=== PATIENT | male | born 1980 | race Caucasian/White ===

== ENCOUNTER 2024-03-25 21:54 | Inpatient (IN) ==
--- NOTE | 2024-03-25 22:18 | Emergency Department Note ---
Impression & Plan Hypertensive crisis, Hypertension, Elevated troponin ED Provider Note NAME: ANGELICA MANSFIELD AGE: 43 SEX: M : 1980 ARRIVES VIA: Walk-In INFORMANT: Patient ED PROVIDER(S): Luis Domniguez DO CHIEF COMPLAINT: Cough, nasal congestion, and elevated blood pressure HPI: Patient is a 43-year-old male who presents to the ER for cough that has been present for the past several days. In combination with this he admits to nasal congestion. Patient admits to an episode of hematuria earlier today where he passed a large clot in his urine. He has not urinated since then. No flank pain. No trauma. No dysuria, urgency, or frequency. Denies any headache or change in vision. No chest pain or shortness of breath. No weakness or numbness in the arms or legs. No other exacerbating or remitting factors. 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 ADDITIONAL HISTORY OBTAINED: Per HPI Chronic Medical/Social Conditions Affecting Care: Per HPI PAST MEDICAL HISTORY:See Below PAST SURGICAL HISTORY:See Below FAMILY HISTORY:See Below SOCIAL HISTORY:See Below HOME MEDICATIONS:See Below ALLERGIES:See Below VITALS:See Below PHYSICAL EXAMINATION: GENERAL: Sitting up in bed, alert, well appearing, well nourished, no distress, non-toxic EYE EXAM: normal conjunctiva. PERRL and EOM's grossly intact. OROPHARYNX: no exudate, no erythema, lips, buccal mucosa, and tongue normal and mucous membranes are moist NECK: supple, no nuchal rigidity, no adenopathy, non-tender LUNGS: Clear to auscultation. Normal chest wall mechanics HEART: no murmurs, S1 normal and S2 normal ABDOMEN: abdomen soft, non-tender, normo-active bowel sounds, no masses, no rebound or guarding. BACK: Back is symmetrical on inspection and there is no deformity, no midline tenderness, no CVA tenderness. SKIN: no rashes and no bruising UPPER EXTREMITIES: upper extremities are grossly normal. LOWER EXTREMITIES: No pitting edema. NEURO EXAM: Normal sensorium, cranial nerves II-XII intact, normal speech, no weakness of arms, no weakness of legs. No drift. Finger to nose intact. Gross sensation intact. MEDICAL DECISION MAKING: Patient is a 43-year-old male who presents to the ER for the above-stated complaint. IV was established and blood work was obtained. External records were reviewed and he was seen and evaluated at the urgent care and had systolic pressures in the 220s. Labs show no significant leukocytosis or anemia. Platelets are slightly low at 128. BMP along LFTs bilirubin is unremarkable. Troponin was mildly elevated at 98. Viral panel was positive for rhinovirus. Chest x-ray was clean. CT abdomen pelvis was performed due to the hematuria and passing clots and showed no acute pathology. Patient was given 2 doses of labetalol IV due to systolic pressures of 2 30-2 50. They trended down to 180. Will hold at this point as this is close to 25% decrease. With the elevated troponin, EKG consistent with LVH and pulmonary edema did discuss with the hospitalist for further evaluation. Consults/Care Managements Discussions: Per [facility] Triage Nursing notes reviewed. Limited review of prior medical records performed Vital Signs: reviewed and remarkable for HTN Differential diagnosis: Benign hypertension, hypertensive emergency, cardiovascular pathology, toxicologic, pheochromocytoma, electrolyte abnormality, renal disease, endorgan damage, as well as other pathologies. ER treatment provided: See below Diagnostics interpreted by me include EKG and cardiac monitoring as listed below: -Cardiac Monitoring: An order was placed for continuous cardiac monitoring. The monitor shows a rate of 80 with sinus rhythm. -ECG: Sinus rhythm rate 84 Normal axis No PVCs T wave inversion in the lateral leads as well as the high lateral leads, LVH -Laboratory studies:Interpreted by me as stated above in MDM and shown below. Imaging studies: Xrays: As interpreted by me: Portable AP upright 1 view of the chest shows no focal infiltrate CTs show: CT abdomen pelvis showed cardiomegaly with interstitial edema Procedures:none Critical Care: I have personally spent 35 minutes of critical care time in the direct management of this patient. This includes bedside care, interpretation of diagnostic studies, and testing, discussion with consultants, patient, and family members, and other required patient management activities. This 35 minutes is in excess of all separately billable procedures. Past Med/Surg History Problem List (Updated 03/26/24 @ 00:32 by Luis Dominguez DO) Elevated troponin (Acute) Hypertension (Acute) Hypertensive crisis (Acute) Medical History (Updated 03/26/24 @ 00:32 by Luis Dominguez DO) No pertinent past medical history Social History Smoking Status: Never smoker Feels Safe at Home: Yes Allergies Allergies Allergy/AdvReac Type Severity Reaction Status Date / Time Sulfa (Sulfonamide Allergy Unknown RASH Verified 03/23/24 11:51 Antibiotics) Home Meds Home Medications Medication Instructions Recorded Confirmed Augmentin 0 tab PO UD 03/25/24 03/25/24 Results & Data (ED) Vital Signs Vital Signs - 24 hr 03/25/24 21:58 03/25/24 22:09 03/25/24 22:10 Temperature 36.9 C Temperature Source Temporal Artery Scan Pulse Rate 88 84 Pulse Rate [Apical] 85 Respiratory Rate 20 28 H Respiratory Effort / Characteristics Non-Labored Non-Labored Respiratory Depth Normal Normal Blood Pressure Blood Pressure [Right Arm] 233/169 H Blood Pressure Mean [Right Arm] 190 Pulse Oximetry 96 97 Oxygen Delivery Method Room Air Room Air Sepsis Recent Fever Within 48 Hours No Sepsis New/Unexplained Change in Mental Status No Sepsis Action Taken by Nursing No Action Required 03/25/24 22:23 03/25/24 22:24 03/25/24 22:25 Temperature Temperature Source Pulse Rate Pulse Rate [Apical] 84 81 Respiratory Rate 16 16 Respiratory Effort / Characteristics Respiratory Depth Blood Pressure Blood Pressure [Right Arm] 223/172 H 236/165 H Blood Pressure Mean [Right Arm] 189 188 Pulse Oximetry 95 96 95 Oxygen Delivery Method Room Air Room Air Room Air Sepsis Recent Fever Within 48 Hours Sepsis New/Unexplained Change in Mental Status Sepsis Action Taken by Nursing 03/25/24 22:30 03/25/24 22:35 03/25/24 22:52 Temperature Temperature Source Pulse Rate Pulse Rate [Apical] 77 77 84 Respiratory Rate 16 16 16 Respiratory Effort / Characteristics Respiratory Depth Blood Pressure Blood Pressure [Right Arm] 221/159 H 221/155 H 250/169 H Blood Pressure Mean [Right Arm] 179 177 196 Pulse Oximetry 95 95 97 Oxygen Delivery Method Room Air Room Air Room Air Sepsis Recent Fever Within 48 Hours Sepsis New/Unexplained Change in Mental Status Sepsis Action Taken by Nursing 03/25/24 22:56 03/25/24 23:00 03/25/24 23:05 Temperature Temperature Source Pulse Rate 82 Pulse Rate [Apical] 73 78 Respiratory Rate 16 16 Respiratory Effort / Characteristics Respiratory Depth Blood Pressure 220/167 H Blood Pressure [Right Arm] 201/141 H 212/150 H Blood Pressure Mean [Right Arm] 161 170 Pulse Oximetry 94 93 Oxygen Delivery Method Room Air Room Air Sepsis Recent Fever Within 48 Hours Sepsis New/Unexplained Change in Mental Status Sepsis Action Taken by Nursing 03/25/24 23:10 03/25/24 23:12 03/25/24 23:16 Temperature Temperature Source Pulse Rate 73 71 Pulse Rate [Apical] 71 Respiratory Rate 16 Respiratory Effort / Characteristics Respiratory Depth Blood Pressure 212/150 H 214/163 H Blood Pressure [Right Arm] 192/136 H Blood Pressure Mean [Right Arm] 154 Pulse Oximetry 94 Oxygen Delivery Method Room Air Sepsis Recent Fever Within 48 Hours Sepsis New/Unexplained Change in Mental Status Sepsis Action Taken by Nursing 03/25/24 23:21 03/25/24 23:25 03/25/24 23:30 Temperature Temperature Source Pulse Rate Pulse Rate [Apical] 70 69 73 Respiratory Rate 16 16 16 Respiratory Effort / Characteristics Respiratory Depth Blood Pressure Blood Pressure [Right Arm] 197/121 H 194/121 H 196/124 H Blood Pressure Mean [Right Arm] 146 145 148 Pulse Oximetry 94 94 94 Oxygen Delivery Method Room Air Room Air Room Air Sepsis Recent Fever Within 48 Hours Sepsis New/Unexplained Change in Mental Status Sepsis Action Taken by Nursing 03/25/24 23:35 03/25/24 23:48 03/26/24 00:00 Temperature Temperature Source Pulse Rate 72 Pulse Rate [Apical] 67 68 Respiratory Rate 16 16 Respiratory Effort / Characteristics Respiratory Depth Blood Pressure 182/136 H Blood Pressure [Right Arm] 192/128 H 186/131 H Blood Pressure Mean [Right Arm] 149 149 Pulse Oximetry 94 94 Oxygen Delivery Method Room Air Room Air Sepsis Recent Fever Within 48 Hours Sepsis New/Unexplained Change in Mental Status Sepsis Action Taken by Nursing 03/26/24 00:10 Temperature Temperature Source Pulse Rate Pulse Rate [Apical] 68 Respiratory Rate 16 Respiratory Effort / Characteristics Respiratory Depth Blood Pressure Blood Pressure [Right Arm] 181/119 H Blood Pressure Mean [Right Arm] 139 Pulse Oximetry 92 Oxygen Delivery Method Room Air Sepsis Recent Fever Within 48 Hours Sepsis New/Unexplained Change in Mental Status Sepsis Action Taken by Nursing Laboratory Data 03/25/24 22:20 03/25/24 22:20 Lab Results 03/25/24 Range/Units 22:20 WBC 7.60 (4.8-10.8) K/ul RBC 5.07 (4.70-6.10) M/uL Hgb 15.2 (14.0-18.0) g/dl Hct 43.6 (42.0-52.0) % MCV 86.0 (80.0-100.0) fL MCH 30.0 (25.0-34.0) pg MCHC 34.9 (32.0-36.0) g/dL RDW Std Deviation 39.5 (36.4-46.3) fL RDW Coeff of Mya 12.6 (11.5-14.5) % Plt Count 128 L (130-400) K/uL MPV 11.6 (9.4-12.4) fL Immature Gran % (Auto) 0.3 % Neut % (Auto) 59.0 % Lymph % (Auto) 26.8 % [place] % (Auto) 12.0 % Eos % (Auto) 1.2 % Baso % (Auto) 0.7 % Neut # (Auto) 4.49 (1.40-6.50) K/uL Lymph # (Auto) 2.04 (1.20-3.40) K/uL [place] # (Auto) 0.91 H (0.11-0.59) K/uL Eos # (Auto) 0.09 (0.00-0.50) K/uL Baso # (Auto) 0.05 (0.00-0.20) K/uL Immature Gran # (Auto) 0.02 (0.01-0.20) K/uL Sodium 139 (136-145) mmol/L Potassium 3.6 (3.5-5.1) mmol/L Chloride 104 (98-107) mmol/L Carbon Dioxide 28 (21-32) mmol/L Anion Gap 7 (3-11) BUN 31 H (6-23) mg/dl Creatinine 1.34 (0.6-1.4) mg/dl Est Cr Clr Drug Dosing 100.2 ml/min eGFR 68.25 BUN/Creatinine Ratio 23.1 H (10-20) Glucose 104 H (70-99(Fasting)) mg/dl Calcium 9.2 (8.6-10.3) mg/dl Total Bilirubin 0.8 (0.2-1.0) mg/dl AST 28 (13-39) U/L ALT 25 (7-52) U/L Alkaline Phosphatase 50 (34-104) U/L Troponin I High Sens 95.4 H* (0-20) pg/ml Total Protein 7.4 (6.0-8.3) gm/dl Albumin 4.2 (3.4-5.0) gm/dl Globulin 3.2 (2.5-4.0) gm/dl Albumin/Globulin Ratio 1.3 (0.9-2) Lipase 50 (11-82) U/L Adenovirus (PCR) Not Detected (NotDetected) B. pertussis DNA (PCR) Not Detected (NotDetected) B.parapertussis DNA PCR Not Detected (NotDetected) C. pneumoniae DNA (PCR) Not Detected (NotDetected) Coronavirus OC43 (PCR) Not Detected (NotDetected) Coronavirus HKU1 (PCR) Not Detected (NotDetected) Coronavirus 229E (PCR) Not Detected (NotDetected) SARS-CoV-2 (PCR) Not Detected (NotDetected) Coronavirus NL63 (PCR) Not Detected (NotDetected) Human Metapneumovir PCR Not Detected (NotDetected) Influenza Type A (PCR) Not Detected (NotDetected) Influenza Type B (PCR) Not Detected (NotDetected) M. pneumoniae (PCR) Not Detected (NotDetected) Parainfluenza 1 (PCR) Not Detected (NotDetected) Parainfluenza 2 (PCR) Not Detected (NotDetected) Parainfluenza 3 (PCR) Not Detected (NotDetected) Parainfluenza 4 (PCR) Not Detected (NotDetected) RSV (PCR) Not Detected (NotDetected) Entero/Rhino (PCR) DETECTED A (NotDetected) Administered Medications Discontinued Medications Ioversol (Optiray 320 100ml) 91 ml IV ONCE ONE Stop: 03/25/24 22:46 Last Admin: 03/25/24 22:47 Dose: 91 ml Documented By: GASTON Labetalol HCl (Labetalol Hcl Iv 5 Mg/Ml 20ml) 10 mg IV NOW STA Stop: 03/25/24 22:41 Last Admin: 03/25/24 22:56 Dose: 10 mg Documented By: ALETHEA Labetalol HCl (Labetalol Hcl Iv 5 Mg/Ml 20ml) 10 mg IV NOW STA Stop: 03/25/24 23:03 Last Admin: 03/25/24 23:10 Dose: 10 mg Documented By: [employer] Data Radiologist's Impression: Chest X-Ray 03/25/24 22:15 Exam(s): XR CXR 1 VIEW EXAM: XR Chest, 1 View CLINICAL HISTORY: Reason for exam: Chest pain, nonspecific. TECHNIQUE: Frontal view of the chest. COMPARISON: No relevant prior studies available. FINDINGS: Lungs: Mild interstitial edema. No consolidation. Pleural space: No pleural effusion. No pneumothorax. Heart: Cardiomegaly. IMPRESSION: 1. Mild interstitial edema. 2. Cardiomegaly. Electronically signed by: Chavo Oropeza MD 03/25/24 23:47 PM Abdomen/Pelvis CT 03/25/24 22:16 Exam(s): CT ABDOMEN + PELVIS With Contrast IV Amt: 91 ML OPTIRAY 320 EXAM: CT Abdomen and Pelvis With Intravenous Contrast CLINICAL HISTORY: Reason for exam: hematuria. TECHNIQUE: Axial computed tomography images of the abdomen and pelvis with intravenous contrast. CTDI is 27.74 mGy and DLP is 1492.27 mGy-cm. Automated exposure control was utilized for the study. A dose lowering technique was utilized adhering to the principles of ALARA. CONTRAST: Patient received 91 ML OPTIRAY 320 of IV contrast COMPARISON: No relevant prior studies available. FINDINGS: Lung bases: Interstitial edema at the lung bases. Heart: Cardiomegaly. ABDOMEN: Liver: Unremarkable. Gallbladder and bile ducts: Unremarkable. Pancreas: Unremarkable. Spleen: Unremarkable. Adrenals: Unremarkable. Kidneys and ureters: Normal enhancement of the kidneys. No urolithiasis. No inflammatory changes. No suspicious lesion. Stomach and bowel: Unremarkable. PELVIS: Appendix: Normal appendix. Bladder: Unremarkable. Reproductive: Unremarkable as visualized. ABDOMEN and PELVIS: Intraperitoneal space: Unremarkable. No free air. No significant fluid collection. Bones/joints: No acute fracture. Soft tissues: Unremarkable. Vasculature: Unremarkable. Lymph nodes: Unremarkable. IMPRESSION: 1. No acute abnormality within the abdomen or pelvis. 2. Cardiomegaly. 3. Interstitial edema at the lung bases. Electronically signed by: Chavo Oropeza MD 03/25/24 23:41 PM Discharge Plan Visit Data Chief Complaint: Hypertension Stated Complaint: HYPERTENSION, BLOOD IN URINE, CHEST CONGESTION ED Provider: Luis Dominguez Discharge Problem: Hypertensive crisis, Hypertension, Elevated troponin Forms Stand Alone Forms: My [employer] Prescriptions Prescriptions: No Action Augmentin 0 tab PO UD Referrals Referrals: Parish Khan [Primary Care Provider] - Discharge Problem: Hypertension Qualifiers: Hypertension type: unspecified Qualified Code(s): I10 - Essential (primary) hypertension
[2024-03-25 22:39] LABS: Basophils # (auto) 0.05 K/uL (0.00-0.20); Basophils % (auto) 0.7 %; Eosinophils # (auto) 0.09 K/uL (0.00-0.50); Eosinophils % (auto) 1.2 %; Hematocrit (blood only) 43.6 % (42.0-52.0); Hemoglobin 15.2 g/dl (14.0-18.0); Immature Granulocytes # (auto) 0.02 K/uL (0.01-0.20); Immature Granulocytes % (auto) 0.3 %; Lymphocytes # (auto) 2.04 K/uL (1.20-3.40); Lymphocytes % (auto) 26.8 %; Mean Corpuscular Hgb Conc 34.9 g/dL (32.0-36.0); Mean Platelet Volume 11.6 fL (9.4-12.4); Monocytes # (auto) 0.91 K/uL (0.11-0.59); Neutrophils # (auto) 4.49 K/uL (1.40-6.50); Platelet Count 128 K/uL (130-400); RDW Coefficient of Variation 12.6 % (11.5-14.5); RDW Standard Deviation 39.5 fL (36.4-46.3); Red Blood Count 5.07 M/uL (4.70-6.10)
[2024-03-25] MEDS: OPTIRAY 320 100ml IV ONE (22:47)
[2024-03-25 22:52] LABS: Albumin Globulin Ratio 1.3 (0.9-2); Albumin Level 4.2 gm/dl (3.4-5.0); BUN Creatinine Ratio 23.1 (10-20); Bilirubin,Total 0.8 mg/dl (0.2-1.0); Calcium 9.2 mg/dl (8.6-10.3); Creatinine Clr Calc Pharmacy 100.2 ml/min; Globulin 3.2 gm/dl (2.5-4.0); Potassium 3.6 mmol/L (3.5-5.1); Total Protein 7.4 gm/dl (6.0-8.3)
[2024-03-25] MEDS: LABETALOL HCL IV 5 MG/ML 20ML IV STA ×2 (22:56→23:10)
[2024-03-25 23:12] LABS: Troponin I High Sensitivity 95.4 pg/ml (0-20)
[2024-03-25 23:18] LABS: Adenovirus PCR Not Detected (NotDetected); Bordetella parapertussis PCR Not Detected (NotDetected); Bordetella pertussis PCR Not Detected (NotDetected); Chlamydia pneumoniae PCR Not Detected (NotDetected); Coronavirus 229E PCR Not Detected (NotDetected); Coronavirus CoV-2 (COVID19)PCR Not Detected (NotDetected); Coronavirus HKU1 PCR Not Detected (NotDetected); Coronavirus NL63 PCR Not Detected (NotDetected); Coronavirus OC43PCR Not Detected (NotDetected); Human Metapneumovirus PCR Not Detected (NotDetected); Influenza A PCR Not Detected (NotDetected); Influenza B PCR Not Detected (NotDetected); Mycoplasma pneumoniae PCR Not Detected (NotDetected); Parainfluenza Virus 1 PCR Not Detected (NotDetected); Parainfluenza Virus 2 PCR Not Detected (NotDetected); Parainfluenza Virus 3 PCR Not Detected (NotDetected); Parainfluenza Virus 4 PCR Not Detected (NotDetected); Respiratory Syncytial VirusPCR Not Detected (NotDetected); Rhinovirus/Enterovirus PCR DETECTED (NotDetected)
--- NOTE | 2024-03-25 23:42 | CT Scan Report ---
Exam(s): CT ABDOMEN + PELVIS With Contrast IV Amt: 91 ML OPTIRAY 320 EXAM: CT Abdomen and Pelvis With Intravenous Contrast CLINICAL HISTORY: Reason for exam: hematuria. TECHNIQUE: Axial computed tomography images of the abdomen and pelvis with intravenous contrast. CTDI is 27.74 mGy and DLP is 1492.27 mGy-cm. Automated exposure control was utilized for the study. A dose lowering technique was utilized adhering to the principles of ALARA. CONTRAST: Patient received 91 ML OPTIRAY 320 of IV contrast COMPARISON: No relevant prior studies available. FINDINGS: Lung bases: Interstitial edema at the lung bases. Heart: Cardiomegaly. ABDOMEN: Liver: Unremarkable. Gallbladder and bile ducts: Unremarkable. Pancreas: Unremarkable. Spleen: Unremarkable. Adrenals: Unremarkable. Kidneys and ureters: Normal enhancement of the kidneys. No urolithiasis. No inflammatory changes. No suspicious lesion. Stomach and bowel: Unremarkable. PELVIS: Appendix: Normal appendix. Bladder: Unremarkable. Reproductive: Unremarkable as visualized. ABDOMEN and PELVIS: Intraperitoneal space: Unremarkable. No free air. No significant fluid collection. Bones/joints: No acute fracture. Soft tissues: Unremarkable. Vasculature: Unremarkable. Lymph nodes: Unremarkable. IMPRESSION: 1. No acute abnormality within the abdomen or pelvis. 2. Cardiomegaly. 3. Interstitial edema at the lung bases. Electronically signed by: Chavo Oropeza MD 03/25/24 23:41 PM
--- NOTE | 2024-03-25 23:48 | XRay Report ---
Exam(s): XR CXR 1 VIEW EXAM: XR Chest, 1 View CLINICAL HISTORY: Reason for exam: Chest pain, nonspecific. TECHNIQUE: Frontal view of the chest. COMPARISON: No relevant prior studies available. FINDINGS: Lungs: Mild interstitial edema. No consolidation. Pleural space: No pleural effusion. No pneumothorax. Heart: Cardiomegaly. IMPRESSION: 1. Mild interstitial edema. 2. Cardiomegaly. Electronically signed by: Chavo Oropeza MD 03/25/24 23:47 PM
[2024-03-26 00:38] LABS: Troponin I High Sensitivity 91.4 pg/ml (0-20)
[2024-03-26] MEDS: hydrALAZINE HCL 20 MG/ML VIAL IV STA (01:08)
[2024-03-26] MEDS: ASPIRIN CHEW 324 MG PO STA (01:08)
[2024-03-26] MEDS: METOPROLOL TARTRATE 25 MG TAB PO STA (01:13)
--- NOTE | 2024-03-26 01:15 | History & Physical Report ---
Date of Service March 26, 2024 Assessment & Plan (1) Hypertensive crisis: (2) Elevated troponin: (3) Left ventricular hypertrophy by electrocardiogram: (4) Hypertension: (5) Rhinovirus infection: (6) Enterovirus infection: (7) Thrombocytopenia: Plan Elevated troponin/hypertensive crisis/left ventricular hypertrophy- The patient will be admitted to telemetry for serial cardiac enzymes, serial EKG's, cardiac rhythm monitoring and a 2-D echocardiogram with Dopplers. Initial troponin 95.4, with follow-up 91.4 Blood pressure upon arrival 242/166. From the ED he received labetalol 10 mg IV x 2 He was then given aspirin 324 mg, metoprolol tartrate 25 mg p.o. now and then t wice daily Hydralazine 10 mg IV, and every 4 hours as needed systolic blood pressure greater than 160 Nitropaste 1 inch to anterior chest wall every 6 hours. With improvement of blood pressure to 181/76 EKG with LVH and repolarization abnormalities Respiratory BioFire did show enterovirus/rhinovirus, which might indicate myopericarditis Check a fasting lipid panel and hemoglobin A1c Consult cardiology Enterovirus/rhinovirus- Mild bronchitis Give Solu-Medrol 40 mg IV now. Redose in the a.m. depending upon additional response and testing results Thrombocytopenia- Platelets 128 on admission Follow closely while on aspirin History of Present Illness Chief Complaint: The patient presents to the emergency department with complaints of a cough productive of greenish sputum worsening over the past few days, and noted passing a blood clot when he urinated this evening. Primary Care Provider: Parish Khan The patient is a 43-year-old male with a past medical history including white coat hypertension, who presents to the emergency department due to a persistent cough over the past week, most recently productive of greenish sputum, and notes an episode of passing a blood clot when urinating this evening. He had been to urgent care few days ago, and was advised to come to the emergency department due to elevated blood pressure. He felt that it was likely related to whitecoat hypertension, and went to see his PCP, who prescribed Augmentin for respiratory infection. Patient has been on the antibiotic for 2 days, has not noticed any improvement in cough, and presents to the ED for assessment as noted above. Allergies Allergy/AdvReac Type Severity Reaction Status Date / Time Sulfa (Sulfonamide Allergy Unknown RASH Verified 03/23/24 11:51 Antibiotics) Home Medications Medication Instructions Recorded Confirmed Type Augmentin 0 tab PO UD 03/25/24 03/25/24 History Past Med/Surg History Problem List (Updated 03/26/24 @ 03:13 by Ramiro Contreras MD) Thrombocytopenia Left ventricular hypertrophy by electrocardiogram Enterovirus infection Rhinovirus infection Elevated troponin (Acute) Hypertension (Acute) Hypertensive crisis (Acute) Medical History (Updated 03/26/24 @ 03:13 by Ramiro Contreras MD) No pertinent past medical history Social History Smoking Status: Former smoker Second Hand Exposure: No; Do You Dip or Chew Tobacco: No; Hx Alcohol Use: Yes Alcohol type: beer, wine and hard liquor Hx Substance Use: No Preferred Language: Romansh Communication Ability: Effective 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 Beliefs That Will Affect Care: None Current Living Situation: Spouse and Family Other Information That Helps Us Care for You: No Feels Safe at Home: Yes Safety Concerns: Feels Safe At This Time Assistive Devices: None Review of Systems Review of Systems: The patient denies chest pain, palpitations, shortness of breath, dyspnea on exertion, lower extremity swelling, sore throat, fevers, chills, sweats, nausea, vomiting, diarrhea , constipation, abdominal pain, pelvic pain, blood in stool, dysuria, urinary frequency or urgency, lightheadedness, dizziness, headache, memory loss, loss of consciousness, rash, imbalance, focal or generalized weakness, numbness or tingling in arms or legs, generalized arthralgias or myalgias, back or neck pain, or night sweats. The review of systems is otherwise negative other than for that already noted above, and at least 10 systems have been reviewed. Physical Exam Physical Exam: The patient is awake, alert and oriented 3, well developed and well nourished, normocephalic and atraumatic, lying in bed and in no acute distress. HEENT--PERRL, EOMI, mucous membranes and oropharynx normal Neck--supple. No JVD. No bruits. Thyroid normal, trachea midline, no adenopathy. Heart--normal S1 and S2. No murmurs, rubs or gallops. Lungs--clear bilaterally, no respiratory distress, no accessory muscle use. Abdomen--normal bowel sounds and soft. Nontender. Nondistended, no hernias or masses, no organomegaly. Extremities--no cyanosis or clubbing. No edema. There are good distal pulses b/l. Dermatologic--normal skin turgor, normal color, no abnormal lymph nodes, no rash. Neurologic--cranial nerves II through XII grossly intact. Rheumatologic--normal range of motion. Psychiatric--normal affect. Results & Data Results & Data Vital Signs (Past 12 Hours) Vital Signs Temp Pulse Pulse Resp BP BP Pulse Ox 03/26/24 00:47 74 18 208/119 H 93 03/26/24 00:10 68 16 181/119 H 92 03/26/24 00:00 68 16 186/131 H 94 03/25/24 23:48 72 182/136 H 03/25/24 23:35 67 16 192/128 H 94 03/25/24 23:30 73 16 196/124 H 94 03/25/24 23:25 69 16 194/121 H 94 03/25/24 23:21 70 16 197/121 H 94 03/25/24 23:16 71 16 192/136 H 94 03/25/24 23:12 71 214/163 H 03/25/24 23:10 73 212/150 H 03/25/24 23:05 78 16 212/150 H 93 03/25/24 23:00 73 16 201/141 H 94 03/25/24 22:56 82 220/167 H 03/25/24 22:52 84 16 250/169 H 97 03/25/24 22:35 77 16 221/155 H 95 03/25/24 22:30 77 16 221/159 H 95 03/25/24 22:25 81 16 236/165 H 95 03/25/24 22:24 96 03/25/24 22:23 84 16 223/172 H 95 03/25/24 22:10 84 03/25/24 22:09 85 28 H 233/169 H 97 03/25/24 21:58 36.9 C 88 20 96 O2 Del Method 03/26/24 00:47 Room Air 03/26/24 00:10 Room Air 03/26/24 00:00 Room Air 03/25/24 23:48 03/25/24 23:35 Room Air 03/25/24 23:30 Room Air 03/25/24 23:25 Room Air 03/25/24 23:21 Room Air 03/25/24 23:16 Room Air 03/25/24 23:12 03/25/24 23:10 03/25/24 23:05 Room Air 03/25/24 23:00 Room Air 03/25/24 22:56 03/25/24 22:52 Room Air 03/25/24 22:35 Room Air 03/25/24 22:30 Room Air 03/25/24 22:25 Room Air 03/25/24 22:24 Room Air 03/25/24 22:23 Room Air 03/25/24 22:10 03/25/24 22:09 Room Air 03/25/24 21:58 Room Air Laboratory Results Laboratory Results WBC 7.60 K/ul (4.8-10.8) 03/25/24 22:20 RBC 5.07 M/uL (4.70-6.10) 03/25/24 22:20 Hgb 15.2 g/dl (14.0-18.0) 03/25/24 22:20 Hct 43.6 % (42.0-52.0) 03/25/24 22:20 MCV 86.0 fL (80.0-100.0) 03/25/24 22:20 MCH 30.0 pg (25.0-34.0) 03/25/24 22:20 MCHC 34.9 g/dL (32.0-36.0) 03/25/24 22:20 RDW Std Deviation 39.5 fL (36.4-46.3) 03/25/24 22:20 RDW Coeff of Mya 12.6 % (11.5-14.5) 03/25/24 22:20 Plt Count 128 K/uL (130-400) L 03/25/24 22:20 MPV 11.6 fL (9.4-12.4) 03/25/24 22:20 Immature Gran % (Auto) 0.3 % 03/25/24 22:20 Neut % (Auto) 59.0 % 03/25/24 22:20 Lymph % (Auto) 26.8 % 03/25/24 22:20 [place] % (Auto) 12.0 % 03/25/24 22:20 Eos % (Auto) 1.2 % 03/25/24 22:20 Baso % (Auto) 0.7 % 03/25/24 22:20 Neut # (Auto) 4.49 K/uL (1.40-6.50) 03/25/24 22:20 Lymph # (Auto) 2.04 K/uL (1.20-3.40) 03/25/24 22:20 [place] # (Auto) 0.91 K/uL (0.11-0.59) H 03/25/24 22:20 Eos # (Auto) 0.09 K/uL (0.00-0.50) 03/25/24 22:20 Baso # (Auto) 0.05 K/uL (0.00-0.20) 03/25/24 22:20 Immature Gran # (Auto) 0.02 K/uL (0.01-0.20) 03/25/24 22:20 Sodium 139 mmol/L (136-145) 03/25/24 22:20 Potassium 3.6 mmol/L (3.5-5.1) 03/25/24 22:20 Chloride 104 mmol/L (98-107) 03/25/24 22:20 Carbon Dioxide 28 mmol/L (21-32) 03/25/24 22:20 Anion Gap 7 (3-11) 03/25/24 22:20 BUN 31 mg/dl (6-23) H 03/25/24 22:20 Creatinine 1.34 mg/dl (0.6-1.4) 03/25/24 22:20 Est Cr Clr Drug Dosing 100.2 ml/min 03/25/24 22:20 eGFR 68.25 03/25/24 22:20 BUN/Creatinine Ratio 23.1 (10-20) H 03/25/24 22:20 Glucose 104 mg/dl (70-99(Fasting)) H 03/25/24 22:20 Calcium 9.2 mg/dl (8.6-10.3) 03/25/24 22:20 Magnesium 2.0 mg/dl (1.7-2.4) 03/26/24 00:01 Total Bilirubin 0.8 mg/dl (0.2-1.0) 03/25/24 22:20 AST 28 U/L (13-39) 03/25/24 22:20 ALT 25 U/L (7-52) 03/25/24 22:20 Alkaline Phosphatase 50 U/L (34-104) 03/25/24 22:20 Troponin I High Sens 91.4 pg/ml (0-20) H* 03/26/24 00:01 Total Protein 7.4 gm/dl (6.0-8.3) 03/25/24 22:20 Albumin 4.2 gm/dl (3.4-5.0) 03/25/24 22:20 Globulin 3.2 gm/dl (2.5-4.0) 03/25/24 22:20 Albumin/Globulin Ratio 1.3 (0.9-2) 03/25/24 22:20 Lipase 50 U/L (11-82) 03/25/24 22:20 Adenovirus (PCR) Not Detected (NotDetected) 03/25/24 22:20 B. pertussis DNA (PCR) Not Detected (NotDetected) 03/25/24 22:20 B.parapertussis DNA PCR Not Detected (NotDetected) 03/25/24 22:20 C. pneumoniae DNA (PCR) Not Detected (NotDetected) 03/25/24 22:20 Coronavirus OC43 (PCR) Not Detected (NotDetected) 03/25/24 22:20 Coronavirus HKU1 (PCR) Not Detected (NotDetected) 03/25/24 22:20 Coronavirus 229E (PCR) Not Detected (NotDetected) 03/25/24 22:20 SARS-CoV-2 (PCR) Not Detected (NotDetected) 03/25/24 22:20 Coronavirus NL63 (PCR) Not Detected (NotDetected) 03/25/24 22:20 Human Metapneumovir PCR Not Detected (NotDetected) 03/25/24 22:20 Influenza Type A (PCR) Not Detected (NotDetected) 03/25/24 22:20 Influenza Type B (PCR) Not Detected (NotDetected) 03/25/24 22:20 M. pneumoniae (PCR) Not Detected (NotDetected) 03/25/24 22:20 Parainfluenza 1 (PCR) Not Detected (NotDetected) 03/25/24 22:20 Parainfluenza 2 (PCR) Not Detected (NotDetected) 03/25/24 22:20 Parainfluenza 3 (PCR) Not Detected (NotDetected) 03/25/24 22:20 Parainfluenza 4 (PCR) Not Detected (NotDetected) 03/25/24 22:20 RSV (PCR) Not Detected (NotDetected) 03/25/24 22:20 Entero/Rhino (PCR) DETECTED (NotDetected) A 03/25/24 22:20 Impressions Chest X-Ray 03/25/24 22:15 Exam(s): XR CXR 1 VIEW EXAM: XR Chest, 1 View CLINICAL HISTORY: Reason for exam: Chest pain, nonspecific. TECHNIQUE: Frontal view of the chest. COMPARISON: No relevant prior studies available. FINDINGS: Lungs: Mild interstitial edema. No consolidation. Pleural space: No pleural effusion. No pneumothorax. Heart: Cardiomegaly. IMPRESSION: 1. Mild interstitial edema. 2. Cardiomegaly. Electronically signed by: Chavo Oropeza MD 03/25/24 23:47 PM Abdomen/Pelvis CT 03/25/24 22:16 Exam(s): CT ABDOMEN + PELVIS With Contrast IV Amt: 91 ML OPTIRAY 320 EXAM: CT Abdomen and Pelvis With Intravenous Contrast CLINICAL HISTORY: Reason for exam: hematuria. TECHNIQUE: Axial computed tomography images of the abdomen and pelvis with intravenous contrast. CTDI is 27.74 mGy and DLP is 1492.27 mGy-cm. Automated exposure control was utilized for the study. A dose lowering technique was utilized adhering to the principles of ALARA. CONTRAST: Patient received 91 ML OPTIRAY 320 of IV contrast COMPARISON: No relevant prior studies available. FINDINGS: Lung bases: Interstitial edema at the lung bases. Heart: Cardiomegaly. ABDOMEN: Liver: Unremarkable. Gallbladder and bile ducts: Unremarkable. Pancreas: Unremarkable. Spleen: Unremarkable. Adrenals: Unremarkable. Kidneys and ureters: Normal enhancement of the kidneys. No urolithiasis. No inflammatory changes. No suspicious lesion. Stomach and bowel: Unremarkable. PELVIS: Appendix: Normal appendix. Bladder: Unremarkable. Reproductive: Unremarkable as visualized. ABDOMEN and PELVIS: Intraperitoneal space: Unremarkable. No free air. No significant fluid collection. Bones/joints: No acute fracture. Soft tissues: Unremarkable. Vasculature: Unremarkable. Lymph nodes: Unremarkable. IMPRESSION: 1. No acute abnormality within the abdomen or pelvis. 2. Cardiomegaly. 3. Interstitial edema at the lung bases. Electronically signed by: Chavo Oropeza MD 03/25/24 23:41 PM Code Status & VTE Plan Code Status Full code VTE Prophylaxis Plan VTE Prophylaxis will be ordered: Yes PG Care Time/CCT Total # of Minutes Spent Total Time Spent with Patient: Total time spent is greater than 50% in coordination of care (as documented) at patient's floor/unit and/or counseling patient: Coding Level of Care Code 45214 INT INP/OBS CARE 3/75MIN Diagnoses Hypertensive crisis I16.9 Elevated troponin R79.89 Left ventricular hypertrophy by electrocardiogram I51.7 Hypertension I10 Hypertension type: unspecified Rhinovirus infection B34.8 Enterovirus infection B34.1 Thrombocytopenia D69.6 (4) Hypertension Hypertension type: unspecified Qualified Code(s): I10 - Essential (primary) hypertension
[2024-03-26] MEDS: methylPREDNISolone 125 MG/2 ML VIAL IV STA (01:30)
[2024-03-26] MEDS ORDERED: ONDANSETRON INJ 2 MG/ML 2 ML VIAL IV PRN (01:53)
[2024-03-26] MEDS: NITROGLYCERIN 2% OINTMENT 30GM TUBE EXT SCH (04:19)
[2024-03-26 06:34] LABS: Basophils # (auto) 0.02 K/uL (0.00-0.20); Basophils % (auto) 0.2 %; Hematocrit (blood only) 41.4 % (42.0-52.0); Hemoglobin 14.2 g/dl (14.0-18.0); Immature Granulocytes # (auto) 0.02 K/uL (0.01-0.20); Immature Granulocytes % (auto) 0.2 %; Lymphocytes # (auto) 0.77 K/uL (1.20-3.40); Lymphocytes % (auto) 9.5 %; Mean Corpuscular Hemoglobin 29.7 pg (25.0-34.0); Mean Corpuscular Hgb Conc 34.3 g/dL (32.0-36.0); Mean Corpuscular Volume 86.6 fL (80.0-100.0); Monocytes # (auto) 0.17 K/uL (0.11-0.59); Monocytes % (auto) 2.1 %; Neutrophils # (auto) 7.11 K/uL (1.40-6.50); Platelet Count 145 K/uL (130-400); RDW Coefficient of Variation 12.7 % (11.5-14.5); RDW Standard Deviation 40.2 fL (36.4-46.3); Red Blood Count 4.78 M/uL (4.70-6.10); White Blood Count 8.09 K/ul (4.8-10.8)
[2024-03-26 06:59] LABS: Calcium 9.2 mg/dl (8.6-10.3); Chol HDL Ratio 3.5 (0-5); Creatinine Clr Calc Pharmacy 112.9 ml/min; Phosphorus 2.1 mg/dl (2.5-4.9); Potassium 3.8 mmol/L (3.5-5.1)
[2024-03-26 07:05] LABS: Estimated Average Glucose 103 mg/dl; Hemoglobin A1C 5.2 % (4.5-5.6)
--- NOTE | 2024-03-26 07:17 | Hospitalist Progress Note ---
Date of Service March 26, 2024 Assessment & Plan (1) Hypertensive crisis: Plan: Blood pressure upon arrival 242/166. In ED he received labetalol 10 mg IV x 2 He was then given aspirin 324 mg EKG with LVH and repolarization abnormalities Current management per cardiology recommendation: - started on lisinopril/hydrochlorothiazide 20/25mg qAM - continue Hydralazine 10mg IV q4 prn systolic BP >160 - ordered plasma metanephrines as pheochromocytoma cannot be excluded - will continue to discuss lifestyle alterations such as exercise and low sodium diet (2) Elevated troponin: Plan: 95.4 -> 91.4, no chest pain or SOB - EKG indicating presence of LVH - consider further values if becomes symptomatic (3) Left ventricular hypertrophy by electrocardiogram: Plan: likely a result of longstanding high BP despite no prior HTN diagnoses - treat HTN (see #1) (4) Blood clots in urine: Plan: per reported history, pt passed a few small "clots" in urine which prompted pt to come to ER - since coming to inpatient floor, pt reports no more clots and no apparent blood in urine - ordered UA - CBC and renal function panel in AM labs (5) Sinus infection: Plan: diagnosed 3 days ago, currently on day 3 of Augmentin 875 BID, does not have with him - ordered Augmentin to take while in hospital - WBC count normal, CBC in AM - pain mgmt requested by pt, ordered toradol 30mg q6h prn for headache/sinus pain, not interested in Tylenol, will discontinue if renal function appears to worsen tomorrow 03/27/24 (6) Hypertension: Plan: see #1 (7) Rhinovirus infection: Plan: Mild bronchitis Solu-Medrol 40 mg IV overnight - consider redosing in AM (8) Enterovirus infection: Plan: Mild bronchitis Solu-Medrol 40 mg IV overnight - consider redosing in AM (9) Thrombocytopenia: Plan: resolved, 128 -> 145 Follow closely while on aspirin Admission and Anticipated Discharge Date Admission Date: March 26, 2024 Supervising Physician Co-Signing Physician Notes ATTESTATION I also saw the patient and confirmed townsend portions of the history and exam. I agree with the impression and plan in the resident documentation, and as summarized below. EXAM 162/91, 73, 18 No complaints at the time of our exam other than tiredness CV RRR Lungs CTA Ext without edema DATA Labs HgB 14.2 Sodium 138, Potassium 3.8, BUN 26, Cr 1.18 Echo with severe LVH with preserved EF EKG sinus with LVH IMPRESSION & PLAN HTN Emergency, improved Echocardiogram, CXR, and EKG demonstrate changes that suggest chronicity Perhaps concurrent viral infection was the tipping point for extreme elevation Appreciate cardiology consultation and recommendations Lisinopril-HCTZ 20-25 Next step probably amlodipine 5 mg Eventually suspect will need higher dose of ALONA Beta williams may be problematic given age and occupation and risk for orthostatics Check plasma free metanephrines Post discharge aerobic exercise, although weight lifting should be curtailed until blood pressure under better control Additional per resident documentation Subjective Patient was seen and evaluated at bedside this AM, lying in bed in no apparent distress. Overnight, endorses that he didn't sleep well but feeling decent this AM. This morning, pt notes that he had been able to urinate with no clots or apparent blood. Endorses a 2/10 frontal headache and notes he was started on Augmentin for a suspected sinus infection, currently on day 3 of 10-day course but doesn't have it here with him. Denies any history of diagnosed hypertension or ever being prescribed medication for blood pressure. Denies recent fever, body aches, chills, sweats, dizziness, lightheadedness, vision changes, nausea/vomiting, neck pain, chest pain, SOB, abdominal pain, back pain, swelling/pain of extremities, numbness/tingling of extremities. Review of Systems Review of Systems: per HPI Physical Exam Physical Exam: Constitutional: The patient is awake, alert and oriented 3, well developed and well nourished, normocephalic and atraumatic, lying in bed and in no acute distress. HEENT: mild tenderness to palpation of frontal and maxillary sinuses; anicteric sclerae, PERRL, EOMI, mucous membranes and oropharynx normal Neck: No JVD, no bruits. Thyroid normal, trachea midline, no adenopathy palpated Cardiovascular: RRR, +s1/s2, no m/r/g heard on auscultation Respiratory: clear to auscultation b/l; good equal air entry b/l, no whe luann/rales/rhonchi GI: +BS, abdomen soft, nontender to palpation, nondistended, no organomegaly MSK: 5/5 strength in all extremities; no cyanosis or clubbing, no edema Skin: normal color and turgor Neuro: no facial droop, speech intact, CN II-XII grossly intact Results & Data Results & Data Vital Signs (Past 12 Hours) Vital Signs Temp Pulse Pulse Resp BP BP Pulse Ox 03/26/24 06:12 170/86 H 03/26/24 04:09 36.6 C 75 18 175/94 H 96 03/26/24 02:00 75 03/26/24 02:00 03/26/24 01:49 76 18 181/76 H 95 03/26/24 01:47 37.0 C 78 211/117 H 96 03/26/24 00:47 74 18 208/119 H 93 03/26/24 00:10 68 16 181/119 H 92 03/26/24 00:00 68 16 186/131 H 94 03/25/24 23:48 72 182/136 H 03/25/24 23:35 67 16 192/128 H 94 03/25/24 23:30 73 16 196/124 H 94 03/25/24 23:25 69 16 194/121 H 94 03/25/24 23:21 70 16 197/121 H 94 03/25/24 23:16 71 16 192/136 H 94 03/25/24 23:12 71 214/163 H 03/25/24 23:10 73 212/150 H 03/25/24 23:05 78 16 212/150 H 93 03/25/24 23:00 73 16 201/141 H 94 03/25/24 22:56 82 220/167 H 03/25/24 22:52 84 16 250/169 H 97 03/25/24 22:35 77 16 221/155 H 95 03/25/24 22:30 77 16 221/159 H 95 03/25/24 22:25 81 16 236/165 H 95 03/25/24 22:24 96 03/25/24 22:23 84 16 223/172 H 95 03/25/24 22:10 84 03/25/24 22:09 85 28 H 233/169 H 97 03/25/24 21:58 36.9 C 88 20 96 O2 Del Method 03/26/24 06:12 03/26/24 04:09 Room Air 03/26/24 02:00 03/26/24 02:00 Room Air 03/26/24 01:49 Room Air 03/26/24 01:47 Room Air 03/26/24 00:47 Room Air 03/26/24 00:10 Room Air 03/26/24 00:00 Room Air 03/25/24 23:48 03/25/24 23:35 Room Air 03/25/24 23:30 Room Air 03/25/24 23:25 Room Air 03/25/24 23:21 Room Air 03/25/24 23:16 Room Air 03/25/24 23:12 03/25/24 23:10 03/25/24 23:05 Room Air 03/25/24 23:00 Room Air 03/25/24 22:56 03/25/24 22:52 Room Air 03/25/24 22:35 Room Air 03/25/24 22:30 Room Air 03/25/24 22:25 Room Air 03/25/24 22:24 Room Air 03/25/24 22:23 Room Air 03/25/24 22:10 03/25/24 22:09 Room Air 03/25/24 21:58 Room Air Laboratory Results Abnormal lab results 03/25/24 03/26/24 03/26/24 Range/Units 22:20 00:01 05:49 Hct 41.4 L (42.0-52.0) % Plt Count 128 L (130-400) K/uL Neut # (Auto) 7.11 H (1.40-6.50) K/uL Lymph # (Auto) 0.77 L (1.20-3.40) K/uL [place] # (Auto) 0.91 H (0.11-0.59) K/uL BUN 31 H 26 H (6-23) mg/dl BUN/Creatinine Ratio 23.1 H 22.0 H (10-20) Glucose 104 H 114 H (70-99(Fasting)) mg/dl Phosphorus 2.1 L (2.5-4.9) mg/dl Troponin I High Sens 95.4 H* 91.4 H* (0-20) pg/ml Entero/Rhino (PCR) DETECTED A (NotDetected) Resident Activity Tracking Resident Involvement: Resident Care Provided Care Provided: Adult Hospital Medicine (6) Hypertension Hypertension type: unspecified Qualified Code(s): I10 - Essential (primary) hypertension
[2024-03-26] MEDS: ASPIRIN 81 MG ECTAB PO SCH (07:44)
[2024-03-26] MEDS: ATORVASTATIN 10 MG TAB PO SCH (07:44)
[2024-03-26] MEDS: METOPROLOL TARTRATE 25 MG TAB PO SCH (07:44)
[2024-03-26] MEDS: ACETAMINOPHEN 325 MG TAB PO PRN (08:47)
[2024-03-26] MEDS: hydrALAZINE HCL 20 MG/ML VIAL IV PRN (08:48)
--- NOTE | 2024-03-26 10:59 | Cardiology Consultation ---
Date of Consultation March 26, 2024 Assessment & Plan (1) Hypertension: (2) Elevated troponin: (3) Left ventricular hypertrophy: (4) Aortic root dilation: Plan 1. Hypertension: He had severely elevated blood pressure at the time of admission. This is clearly longstanding in nature based on his EKG changes and echocardiogram. Unclear if this could be secondary hypertension given his relatively young age. No evidence of renal artery stenosis on his CT scan. He did not give a good history for obstructive sleep apnea. Alcohol use is moderate but not excessive. No regular nonsteroidal use. No history of decongestant use recently. No hypokalemia to suggest hyperaldosteronism. Unlikely to be Ophelia's disease. Pheochromocytoma is a possibility. Will obtain the appropriate serum studies to exclude these problems. At this point I think would be reasonable to start him on combination medical therapy given the severe elevation of his blood pressure. Lisinopril hydrochlorothiazide would be a reasonable start. I do not think he requires nitrates. Beta-williams seem like a less desirable choice in his demographic. Calcium channel williams would also be a reasonable choice. We did discuss continued lifestyle changes including continued regular physical activity and limiting sodium in the diet. 2. Elevated troponin: Anticipated in the setting of severely elevated blood pressure and LVH. Not associated with an acute coronary syndrome. Management includes lowering his blood pressure. 3. Aortic root dilation: This should be followed over time. Reducing blood pressure will also help. 4. Left ventricular hypertrophy: This is a result of his poorly controlled blood pressure over time. Hopefully we will see some improvement with better blood pressure control. History of Present Illness Reason for Consultation: Hypertension, elevated troponin Requesting Physician: Ben Attending Physician: Jimmy Fatima, DO History of Present Illness The patient is a 43-year-old gentleman with without a known history of cardiac disease who has been suffering from some upper respiratory symptoms recently. This is primary related to upper respiratory congestion and a cough. In the past he had developed pneumonia and was concerned about developing pneumonia again. As such, he sought attention in an urgent care. At that facility he was noted to have a markedly elevated blood pressure and advised to go to the emergency room for an evaluation. He eventually sought attention at our facility and was again noted to have a markedly elevated blood pressure. He did not report other symptoms at that time. He was not having symptoms of chest discomfort or breathing difficulty. In general he has not been feeling "well". However, he has been able to maintain his usual level of activity which includes resistance training and cardiovascular exercise. He did not report worsening symptoms or new symptoms associated with that activity. He states that in the past his blood pressure has not been elevated and he has not been treated for high blood pressure. He denies symptoms of dizziness or syncope. Rarely he will have a fleeting sense of palpitation. Has not had any lower extremity edema. No rashes or joint pains recently. He does not report snoring at nighttime or difficulty with sleeping. No orthopnea or paroxysmal nocturnal dyspnea. Allergies Allergy/AdvReac Type Severity Reaction Status Date / Time Sulfa (Sulfonamide Allergy Unknown RASH Verified 03/23/24 11:51 Antibiotics) Home Medications Medication Instructions Recorded Confirmed Type Augmentin 0 tab PO UD 03/25/24 03/25/24 History Patient History Medical History (Updated 03/26/24 @ 10:53 by Archie Thornton MD) No pertinent past medical history Social History Smoking Status: Former smoker Second Hand Exposure: No; Do You Dip or Chew Tobacco: No; Hx Alcohol Use: Yes Alcohol type: beer, wine and hard liquor Hx Substance Use: No Preferred Language: Turkmen Communication Ability: Effective Psychic Reader Required: No Beliefs That Will Affect Care: None Current Living Situation: Spouse and Family Other Information That Helps Us Care for You: No Feels Safe at Home: Yes Safety Concerns: Feels Safe At This Time Assistive Devices: None Review of Systems Review of Systems: Per HPI. Currently not feeling "well". He did report hematuria leading up to admission as well. Physical Exam Physical Exam: The patient is alert and oriented. Mood and affect appeared normal. He answered all questions appropriately. HEENT: Pupils are equal and reactive to light and accommodation. Extraocular movements are intact. The sclerae are anicteric. Neuro: Cranial nerves intact Lungs: Clear to auscultation bilaterally. He has good air movement without use of accessory muscles. No rales wheezes or rhonchi. Cardiac: Heart demonstrates a regular rate and rhythm. Normal S1 and S2. No murmurs on examination. Pulses: The patient has palpable radial pulses bilaterally that are equal in intensity Abdomen: No bruits. Extremities: There was no evidence of hypoperfusion. There is no cyanosis or clubbing. There is no edema. Skin: I did not appreciate any rashes on examination today. Results & Data Vital Signs (Past 12 Hours) Vital Signs Temp Pulse Pulse Resp BP BP BP 03/26/24 10:00 75 159/89 H 03/26/24 08:43 75 166/72 H 03/26/24 08:04 36.7 C 75 18 178/86 H 185/101 H 03/26/24 07:30 70 03/26/24 06:12 170/86 H 03/26/24 04:09 36.6 C 75 18 175/94 H 03/26/24 02:00 75 03/26/24 02:00 03/26/24 01:49 76 18 181/76 H 03/26/24 01:47 37.0 C 78 211/117 H 03/26/24 00:47 74 18 208/119 H 03/26/24 00:10 68 16 181/119 H 03/26/24 00:00 68 16 186/131 H 03/25/24 23:48 72 182/136 H 03/25/24 23:35 67 16 192/128 H 03/25/24 23:30 73 16 196/124 H 03/25/24 23:25 69 16 194/121 H 03/25/24 23:21 70 16 197/121 H 03/25/24 23:16 71 16 192/136 H 03/25/24 23:12 71 214/163 H 03/25/24 23:10 73 212/150 H 03/25/24 23:05 78 16 212/150 H 03/25/24 23:00 73 16 201/141 H 03/25/24 22:56 82 220/167 H 03/25/24 22:52 84 16 250/169 H Pulse Ox O2 Del Method 03/26/24 10:00 03/26/24 08:43 03/26/24 08:04 95 Room Air 03/26/24 07:30 03/26/24 06:12 03/26/24 04:09 96 Room Air 03/26/24 02:00 03/26/24 02:00 Room Air 03/26/24 01:49 95 Room Air 03/26/24 01:47 96 Room Air 03/26/24 00:47 93 Room Air 03/26/24 00:10 92 Room Air 03/26/24 00:00 94 Room Air 03/25/24 23:48 03/25/24 23:35 94 Room Air 03/25/24 23:30 94 Room Air 03/25/24 23:25 94 Room Air 03/25/24 23:21 94 Room Air 03/25/24 23:16 94 Room Air 03/25/24 23:12 03/25/24 23:10 03/25/24 23:05 93 Room Air 03/25/24 23:00 94 Room Air 03/25/24 22:56 03/25/24 22:52 97 Room Air Laboratory Results Abnormal Lab Results 03/25/24 03/26/24 03/26/24 22:20 00:01 05:49 WBC 7.60 8.09 RBC 5.07 4.78 Hgb 15.2 14.2 Hct 43.6 41.4 L MCV 86.0 86.6 MCH 30.0 29.7 MCHC 34.9 34.3 RDW Std Deviation 39.5 40.2 RDW Coeff of Mya 12.6 12.7 Plt Count 128 L 145 MPV 11.6 12.0 Immature Gran % (Auto) 0.3 0.2 Neut % (Auto) 59.0 88.0 Lymph % (Auto) 26.8 9.5 [place] % (Auto) 12.0 2.1 Eos % (Auto) 1.2 0.0 Baso % (Auto) 0.7 0.2 Neut # (Auto) 4.49 7.11 H Lymph # (Auto) 2.04 0.77 L [place] # (Auto) 0.91 H 0.17 Eos # (Auto) 0.09 0.00 Baso # (Auto) 0.05 0.02 Immature Gran # (Auto) 0.02 0.02 Sodium 139 138 Potassium 3.6 3.8 Chloride 104 105 Carbon Dioxide 28 26 Anion Gap 7 7 BUN 31 H 26 H Creatinine 1.34 1.18 Est Cr Clr Drug Dosing 100.2 112.9 eGFR 68.25 79.50 BUN/Creatinine Ratio 23.1 H 22.0 H Glucose 104 H 114 H Estimat Average Glucose 103 Hemoglobin A1c 5.2 Calcium 9.2 9.2 Phosphorus 2.1 L Magnesium Cancelled 2.0 Total Bilirubin 0.8 AST 28 ALT 25 Alkaline Phosphatase 50 Troponin I High Sens 95.4 H* 91.4 H* Total Protein 7.4 Albumin 4.2 4.0 Globulin 3.2 Albumin/Globulin Ratio 1.3 Triglycerides 49 Cholesterol 184 LDL Cholesterol, Calc 122 VLDL Cholesterol, Calc 10 HDL Cholesterol 52 Cholesterol/HDL Ratio 3.5 Lipase 50 Adenovirus (PCR) Not Detected B. pertussis DNA (PCR) Not Detected B.parapertussis DNA PCR Not Detected C. pneumoniae DNA (PCR) Not Detected Coronavirus OC43 (PCR) Not Detected Coronavirus HKU1 (PCR) Not Detected Coronavirus 229E (PCR) Not Detected SARS-CoV-2 (PCR) Not Detected Coronavirus NL63 (PCR) Not Detected Human Metapneumovir PCR Not Detected Influenza Type A (PCR) Not Detected Influenza Type B (PCR) Not Detected M. pneumoniae (PCR) Not Detected Parainfluenza 1 (PCR) Not Detected Parainfluenza 2 (PCR) Not Detected Parainfluenza 3 (PCR) Not Detected Parainfluenza 4 (PCR) Not Detected RSV (PCR) Not Detected Entero/Rhino (PCR) DETECTED A Diagnostic Findings Abdominal CT without evidence of renal artery stenosis. Normal-sized kidneys. Echocardiogram 03/26/2024: Normal LV systolic function. Moderate to severe left ventricular hypertrophy. Moderately dilated left atrium. Mild aortic root dilation. Trace mitral regurgitation. ECG Additional Comments: Normal sinus rhythm with left ventricular hypertrophy and associated repolarization abnormality PG Care Time/CCT Total # of Minutes Spent Total Time Spent with Patient: Total time spent is greater than 50% in coordination of care (as documented) at patient's floor/unit and/or counseling patient: Coding Level of Care Code 73387 IN/OBS CONSULT LVL 4,60M Diagnoses Hypertension I10 Hypertension type: unspecified Elevated troponin R79.89 Left ventricular hypertrophy I51.7 Aortic root dilation I77.810 (1) Hypertension Hypertension type: unspecified Qualified Code(s): I10 - Essential (primary) hypertension
--- NOTE | 2024-03-26 11:03 | XCELERA ---
[id number]
--- NOTE | 2024-03-26 11:19 | Electrocardiogram Report ---
Test Reason : Blood Pressure : */* mmHG Vent. Rate : 84 BPM Atrial Rate : 84 BPM P-R Int : 196 ms QRS Dur : 108 ms QT Int : 390 ms P-R-T Axes : 44 14 146 degrees QTcB Int : 460 ms Normal sinus rhythm Possible Left atrial enlargement Left ventricular hypertrophy with repolarization abnormality Abnormal ECG No previous ECGs available Confirmed by Archie Thornton ([id number]) on 03/26/2024 11:19:01 AM Referred By: REFERRED SELF Confirmed By: Archie Thornton
[2024-03-26] MEDS: LISINOPRIL/HCTZ 20/25MG 1 TAB PO SCH (12:23)
[2024-03-26] MEDS: INFLUENZA VACC TS2024-25(65y+)/PF (IIV3) 0.5mL Syr IM ONE (12:24)
[2024-03-26] MEDS: KETOROLAC 30 MG/ML VIAL IV PRN (15:12)
[2024-03-26] MEDS: AMOXICILLIN/CLAVULANATE 875 MG TAB PO SCH (15:30)
[2024-03-26 18:10] LABS: Appearance Urine Clear (Clear); Bacteria Urine Automated None Seen (None Seen); Bilirubin Urine Negative (Negative); Blood Urine Negative (Negative); Cast Urine Automated 0-2 /lpf (0-2); Color Urine Yellow; Epithelial Cell Urine Auto 0-2 /hpf (0-2); Glucose Urine UA Negative (Negative); Ketones Urine Negative (Negative); Leukocyte Esterase Urine Negative (Negative); Nitrite Urine Negative (Negative); Protein Urine Trace (Negative); RBC Urine Automated 0-2 /hpf (0-2); Specific Gravity Urine 1.012 (1.000-1.030); Urobilinogen Urine Negative (Negative); WBC Urine Automated 0-5 /hpf (0-5); pH Urine 5.5 (4.5-7.5)
[2024-03-26] MEDS: MELATONIN 3 MG TAB PO PRN (22:31)
[2024-03-27 07:24] LABS: Basophils # (auto) 0.02 K/uL (0.00-0.20); Basophils % (auto) 0.2 %; Eosinophils # (auto) 0.06 K/uL (0.00-0.50); Eosinophils % (auto) 0.6 %; Hematocrit (blood only) 40.7 % (42.0-52.0); Hemoglobin 14.2 g/dl (14.0-18.0); Immature Granulocytes # (auto) 0.04 K/uL (0.01-0.20); Immature Granulocytes % (auto) 0.4 %; Lymphocytes # (auto) 1.92 K/uL (1.20-3.40); Lymphocytes % (auto) 19.1 %; Mean Corpuscular Hemoglobin 30.1 pg (25.0-34.0); Mean Corpuscular Hgb Conc 34.9 g/dL (32.0-36.0); Mean Corpuscular Volume 86.2 fL (80.0-100.0); Mean Platelet Volume 11.7 fL (9.4-12.4); Monocytes # (auto) 1.22 K/uL (0.11-0.59); Monocytes % (auto) 12.1 %; Neutrophils # (auto) 6.81 K/uL (1.40-6.50); Neutrophils % (auto) 67.6 %; Platelet Count 143 K/uL (130-400); RDW Coefficient of Variation 13.2 % (11.5-14.5); RDW Standard Deviation 41.9 fL (36.4-46.3); Red Blood Count 4.72 M/uL (4.70-6.10); White Blood Count 10.07 K/ul (4.8-10.8)
[2024-03-27 07:36] LABS: Albumin Level 3.6 gm/dl (3.4-5.0); BUN Creatinine Ratio 23.1 (10-20); Calcium 8.8 mg/dl (8.6-10.3); Phosphorus 4.5 mg/dl (2.5-4.9); Potassium 3.7 mmol/L (3.5-5.1)
--- NOTE | 2024-03-27 15:13 | Hospitalist Progress Note ---
Date of Service March 27, 2024 Assessment & Plan (1) Hypertensive crisis: Plan: Current management - started on lisinopril/hydrochlorothiazide 20-25mg qAM - continue Hydralazine 10mg IV q4 prn systolic BP >160 - pending plasma metanephrines as pheochromocytoma cannot be excluded - will continue to discuss lifestyle alterations such as exercise and low sodium diet New: - adding clonidine 0.1mg BID, receiving one dose 03/27/24 afternoon - amlodipine 5mg qHS (2) Elevated troponin: Plan: 95.4 -> 91.4, no chest pain or SOB - EKG indicating presence of LVH - consider further values if becomes symptomatic (3) Left ventricular hypertrophy by electrocardiogram: Plan: likely a result of longstanding high BP despite no prior HTN diagnoses - treat HTN (see #1) (4) Blood clots in urine: Plan: resolved per reported history, pt passed a few small "clots" in urine which prompted pt to come to ER - since coming to inpatient floor, pt reports no more clots and no apparent blood in urine - UA unremarkable - CBC and renal function panel in AM labs (5) Sinus infection: Plan: currently on day 4 of Augmentin 875 BID, does not have home meds with him - continue taking for suspected sinus infection as prescribed - WBC count normal, CBC in AM - toradol IV as needed for sinus pain / headaches (6) Hypertension: Plan: see #1 (7) Rhinovirus infection: Plan: watch for fever, onset of symptoms (8) Enterovirus infection: Plan: watch for fever, onset of symptoms (9) Thrombocytopenia: Plan: resolved, stable Follow while on aspirin Admission and Anticipated Discharge Date Admission Date: March 26, 2024 Supervising Physician Co-Signing Physician Notes ATTESTATION I also saw the patient and confirmed townsend portions of the history and exam. I agree with the impression and plan in the resident documentation, and as summarized below. Had planned on discharging this morning as his AM readings seemed reasonable. However, prior to discharge again > 200 mm Hg systolic. Remains asymptomatic. EXAM BPs as noted; improved, but aiming for less than 180 prior to discharge No complaints at the time of our exam other than tiredness CV RRR Lungs CTA Ext without edema DATA Labs HgB 14.2 Potassium 3.7,Cr 1.22 Echo with severe LVH with preserved EF EKG sinus with LVH IMPRESSION & PLAN HTN Urgency, improved Echocardiogram, CXR, and EKG demonstrate changes that suggest chronicity Long discussion this morning of factors which point to a prolonged period of elevation Perhaps concurrent viral infection was the tipping point for extreme elevation Appreciate cardiology consultation and recommendations Continue Lisinopril-HCTZ 20-25 Add amlodipine 5 mg Add clonidine 0.1 mg PO BID; I anticipate that this could be eliminated once goal achieved with outpatient titration of ALONA and CCB Added rosuvastatin Beta williams may be problematic given age and occupation and risk for orthostatics Plasma free metanephrines pending, although clinical history and echo findings more consistent with chronic, persistent elevation Hyperaldosteronism unlikely given normal potassium Imaging does not identify renal artery stenosis Post discharge aerobic exercise OK, although weight lifting should be curtailed until blood pressure under better control Discussed low sodium diet I recommend cutting his caffeine consumption in half over the next week or so Additional per resident documentation Subjective Patient was seen and evaluated at bedside this AM, lying in bed in no apparent distress. Overnight, endorses he was able to sleep better than night prior. This morning, pt notes that he has been urinating without notice of blood or clots. Continuing to have elevated blood pressure despite starting on lisinopril-HCTZ 20-25mg. Denies any more headache, but notes he does feel a bit stressed about his BP. Denies recent fever, body aches, chills, sweats, dizziness, lightheadedness, vision changes, nausea/vomiting, neck pain, chest pain, SOB, abdominal pain, back pain, swelling/pain of extremities, numbness/tingling of extremities. Review of Systems Review of Systems: per HPI Physical Exam Physical Exam: Constitutional: The patient is awake, alert and oriented 3, well developed and well nourished, normocephalic and atraumatic, lying in bed and in no acute distress. HEENT: mild tenderness to palpation of frontal and maxillary sinuses; anicteric sclerae, PERRL, EOMI, mucous membranes and oropharynx normal Neck: No JVD, no bruits. Thyroid normal, trachea midline, no adenopathy palpated Cardiovascular: RRR, +s1/s2, no m/r/g heard on auscultation Respiratory: clear to auscultation b/l; good equal air entry b/l, no wheeze/rales/rhonchi GI: +BS, abdomen soft, nontender to palpation, nondistended, no organomegaly MSK: 5/5 strength in all extremities; no cyanosis or clubbing, no edema Skin: normal color and turgor Neuro: no facial droop, speech intact, CN II-XII grossly intact Results & Data Results & Data Vital Signs (Past 12 Hours) Vital Signs Temp Pulse Resp BP Pulse Ox O2 Del Method 03/27/24 12:29 186/116 H 03/27/24 11:08 36.7 C 74 18 209/145 H 97 Room Air 03/27/24 07:31 37.7 C H 70 18 166/98 H 96 Room Air Laboratory Results Abnormal lab results 03/26/24 03/27/24 Range/Units 17:40 06:52 Hct 40.7 L (42.0-52.0) % Neut # (Auto) 6.81 H (1.40-6.50) K/uL [place] # (Auto) 1.22 H (0.11-0.59) K/uL BUN 28 H (6-23) mg/dl BUN/Creatinine Ratio 23.1 H (10-20) Glucose 104 H (70-99(Fasting)) mg/dl Urine Protein Trace H (Negative) Resident Activity Tracking Resident Involvement: Resident Care Provided Care Provided: Adult Hospital Medicine (6) Hypertension Hypertension type: unspecified Qualified Code(s): I10 - Essential (primary) hypertension
[2024-03-27] MEDS ORDERED: amLODIPine BESYLATE 5 MG TAB PO ONE (15:19)
[2024-03-27] MEDS: cloNIDine HCL 0.1 MG TAB PO ONE (16:30)
[2024-03-27] MEDS ORDERED: KETOROLAC TROMETHAMINE 15 MG/ML VIAL IV PRN (17:20)
[2024-03-27] MEDS: amLODIPine BESYLATE 5 MG TAB PO SCH (20:04)
[2024-03-28 06:10] LABS: Basophils # (auto) 0.05 K/uL (0.00-0.20); Basophils % (auto) 0.7 %; Eosinophils # (auto) 0.13 K/uL (0.00-0.50); Eosinophils % (auto) 1.7 %; Hematocrit (blood only) 44.3 % (42.0-52.0); Hemoglobin 15.3 g/dl (14.0-18.0); Immature Granulocytes # (auto) 0.04 K/uL (0.01-0.20); Immature Granulocytes % (auto) 0.5 %; Lymphocytes # (auto) 1.74 K/uL (1.20-3.40); Lymphocytes % (auto) 22.6 %; Mean Corpuscular Hemoglobin 30.2 pg (25.0-34.0); Mean Corpuscular Hgb Conc 34.5 g/dL (32.0-36.0); Mean Corpuscular Volume 87.5 fL (80.0-100.0); Mean Platelet Volume 11.9 fL (9.4-12.4); Monocytes # (auto) 0.98 K/uL (0.11-0.59); Monocytes % (auto) 12.7 %; Neutrophils # (auto) 4.75 K/uL (1.40-6.50); Neutrophils % (auto) 61.8 %; Platelet Count 153 K/uL (130-400); RDW Coefficient of Variation 13.2 % (11.5-14.5); RDW Standard Deviation 41.9 fL (36.4-46.3); Red Blood Count 5.06 M/uL (4.70-6.10); White Blood Count 7.69 K/ul (4.8-10.8)
[2024-03-28 06:37] LABS: Albumin Level 3.8 gm/dl (3.4-5.0); BUN Creatinine Ratio 21.5 (10-20); Calcium 9.2 mg/dl (8.6-10.3); Creatinine Clr Calc Pharmacy 109.8 ml/min; Potassium 3.8 mmol/L (3.5-5.1)
--- NOTE | 2024-03-28 07:47 | Hospitalist Progress Note ---
Date of Service March 28, 2024 Assessment & Plan (1) Hypertensive crisis: Plan: Resolving since admission, still elevated but has gone down to 130-140s/70-80s - continue lisinopril-HCTZ 20-25mg qAM - clonidine 0.1mg BID started yesterday 03/27/24, received one dose yesterday - amlodipine 5mg started yesterday evening - Hydralazine 10mg IV q4 prn systolic BP >160 Labs: pending plasma metanephrines Will continue to discuss lifestyle alterations such as exercise and low sodium diet - consider discharging tomorrow 03/29/24 if remains asymptomatic and has close PCP followup (2) Elevated troponin: Plan: 95.4 -> 91.4, no chest pain or SOB - EKG indicating presence of LVH - consider further values if becomes symptomatic (3) Left ventricular hypertrophy by electrocardiogram: Plan: likely a result of longstanding high BP despite no prior HTN diagnoses - treat HTN (see #1) (4) Aortic root dilation: Plan: seen on echocardiogram from 03/26/24 - follow as an outpatient: close PCP followup, consider cardiology followup (5) Sinus infection: Plan: currently on day 5 of Augmentin 875 BID, does not have home meds with him - continue taking for suspected sinus infection as prescribed - WBC count normal, CBC in AM - toradol 10mg IV q6 as needed for sinus pain / headaches (6) Blood clots in urine: Plan: resolved per reported history, pt passed a few small "clots" in urine which prompted pt to come to ER - since coming to inpatient floor, pt reports no more clots and no apparent blood in urine - UA unremarkable - CBC and renal function panel in AM labs (7) Hypertension: Plan: see #1 (8) Rhinovirus infection: Plan: watch for fever, onset of symptoms (9) Enterovirus infection: Plan: watch for fever, onset of symptoms (10) Thrombocytopenia: Plan: resolved, stable Follow while on aspirin Admission and Anticipated Discharge Date Admission Date: March 26, 2024 Supervising Physician Co-Signing Physician Notes I personally examined the patient and verified townsend points of history and exam, discussed case, and agree with decision making and plan documented by Dr. Lopez. Patient is a 42-year-old male presenting with hypertensive crisis. Cardiology was consulted and recommended multimodal approach to reducing blood pressure. Echocardiogram showed evidence of longstanding hypertension with severe concentric LVH. Plasma metanephrines pending on discharge. Patient will follow- up with cardiology and PCP upon discharge. 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 Patient appears comfortable on exam, lungs clear b/l to auscultation, regular rate and rhythm, no acute distress. Subjective Patient was seen and evaluated at bedside this AM, lying in bed in no apparent distress. Overnight, endorses he was able to sleep well. Continues to deny any symptoms besides mild intermittent headache and sinus pressure Still has been urinating without notice of blood or clots. Continues to eat and drink well without any issue. Continuing to have elevated blood pressure despite starting on lisinopril-HCTZ 20-25mg qAM. Clonidine 0.1mg BID was started yesterday evening 03/27/24 as well as amlodipine 5mg qHS. Denies recent fever, body aches, chills, sweats, dizziness, lightheadedness, vision changes, nausea/vomiting, neck pain, chest pain, SOB, abdominal pain, back pain, swelling/pain of extremities, numbness/tingling of extremities. Review of Systems Review of Systems: per HPI Physical Exam Physical Exam: Constitutional: The patient is awake, alert and oriented 3, well developed and well nourished, normocephalic and atraumatic, lying in bed and in no acute distress. HEENT: mild tenderness to palpation of frontal and maxillary sinuses; anicteric sclerae, PERRL, EOMI, mucous membranes and oropharynx normal Neck: No JVD, no bruits. Thyroid normal, trachea midline, no adenopathy palpated Cardiovascular: RRR, +s1/s2, no m/r/g heard on auscultation Respiratory: clear to auscultation b/l; good equal air entry b/l, no wheeze/rales/rhonchi GI: +BS, abdomen soft, nontender to palpation, nondistended, no organomegaly MSK: 5/5 strength in all extremities; no cyanosis or clubbing, no edema Skin: normal color and turgor Neuro: no facial droop, speech intact, CN II-XII grossly intact Results & Data Results & Data Vital Signs (Past 12 Hours) Vital Signs Temp Pulse Pulse Resp BP BP Pulse Ox 03/28/24 07:00 36.8 C 66 16 155/108 H 96 03/28/24 03:06 37.0 C 71 16 137/88 95 03/28/24 00:52 145/80 H 03/27/24 22:51 166/109 H 03/27/24 22:39 36.7 C 70 16 166/109 H 96 03/27/24 21:58 63 O2 Del Method 03/28/24 07:00 Room Air 03/28/24 03:06 Room Air 03/28/24 00:52 03/27/24 22:51 03/27/24 22:39 Room Air 03/27/24 21:58 Laboratory Results Abnormal lab results 03/28/24 Range/Units 05:27 [place] # (Auto) 0.98 H (0.11-0.59) K/uL BUN 26 H (6-23) mg/dl BUN/Creatinine Ratio 21.5 H (10-20) Resident Activity Tracking Resident Involvement: Resident Care Provided Care Provided: Adult Hospital Medicine (7) Hypertension Hypertension type: unspecified Qualified Code(s): I10 - Essential (primary) hypertension
[2024-03-28] MEDS: cloNIDine HCL 0.1 MG TAB PO SCH (08:03)
[2024-03-28 10:53] VITALS: RESP 18; TEMP 97.9; O2SAT 95
--- NOTE | 2024-03-28 13:14 | Electrocardiogram Report ---
Test Reason : Blood Pressure : */* mmHG Vent. Rate : 75 BPM Atrial Rate : 75 BPM P-R Int : 180 ms QRS Dur : 108 ms QT Int : 454 ms P-R-T Axes : 7 53 247 degrees QTcB Int : 506 ms Normal sinus rhythm Left ventricular hypertrophy with repolarization abnormality Prolonged QT Abnormal ECG When compared with ECG of 25-Mar-2024 22:19, T wave inversion now evident in Inferior leads T wave inversion now evident in Anterior leads Confirmed by Mele Patrick ([id number]) on 03/28/2024 1:14:17 PM Referred By: REFERRED SELF Confirmed By: Mele Patrick
--- NOTE | 2024-03-28 15:39 | Discharge Summary ---
Date of Service March 28, 2024 Admission HPI Per Admitting Provider The patient is a 43-year-old male with a past medical history including white coat hypertension, who presents to the emergency department due to a persistent cough over the past week, most recently productive of greenish sputum, and notes an episode of passing a blood clot when urinating this evening. He had been to urgent care few days ago, and was advised to come to the emergency department due to elevated blood pressure. He felt that it was likely related to whitecoat hypertension, and went to see his PCP, who prescribed Augmentin for respiratory infection. Patient has been on the antibiotic for 2 days, has not noticed any improvement in cough, and presents to the ED for assessment as noted above. Admission Exam Per Admitting Provider The patient is awake, alert and oriented 3, well developed and well nourished, normocephalic and atraumatic, lying in bed and in no acute distress. HEENT--PERRL, EOMI, mucous membranes and oropharynx normal Neck--supple. No JVD. No bruits. Thyroid normal, trachea midline, no adenopathy. Heart--normal S1 and S2. No murmurs, rubs or gallops. Lungs--clear bilaterally, no respiratory distress, no accessory muscle use. Abdomen--normal bowel sounds and soft. Nontender. Nondistended, no hernias or masses, no organomegaly. Extremities--no cyanosis or clubbing. No edema. There are good distal pulses b/l. Dermatologic--normal skin turgor, normal color, no abnormal lymph nodes, no rash. Neurologic--cranial nerves II through XII grossly intact. Rheumatologic--normal range of motion. Psychiatric--normal affect. Principal Diagnosis hypertensive urgency Discharge Exam Constitutional: The patient is awake, alert and oriented 3, well developed and well nourished, normocephalic and atraumatic, lying in bed and in no acute distress. HEENT: mild tenderness to palpation of frontal and maxillary sinuses; anicteric sclerae, PERRL, EOMI, mucous membranes and oropharynx normal Neck: No JVD, no bruits. Thyroid normal, trachea midline, no adenopathy palpated Cardiovascular: RRR, +s1/s2, no m/r/g heard on auscultation Respiratory: clear to auscultation b/l; good equal air entry b/l, no wheeze/rales/rhonchi GI: +BS, abdomen soft, nontender to palpation, nondistended, no organomegaly MSK: 5/5 strength in all extremities; no cyanosis or clubbing, no edema Skin: normal color and turgor Neuro: no facial droop, speech intact, CN II-XII grossly intact Discharge Data Allergies Allergy/AdvReac Type Severity Reaction Status Date / Time Sulfa (Sulfonamide Allergy Unknown RASH Verified 03/23/24 11:51 Antibiotics) Consultations 03/25/24 23:35 ED Decision to Admit Stat 03/26/24 01:53 Consult Cardiology Routine Ordered Studies 03/25/24 22:16 CT abd pelvis IV con only Stat Hospital Course (1) Hypertensive crisis: Resolving since admission, still elevated but has gone down to 130-140s/70-80s - continue lisinopril-HCTZ 20-25mg qAM - clonidine 0.1mg BID started yesterday 03/27/24, received one dose yesterday - amlodipine 5mg started yesterday evening - Hydralazine 10mg IV q4 prn systolic BP >160 Labs: pending plasma metanephrines - Will continue to discuss lifestyle alterations such as exercise and low sodium diet - discharging as pt has been asymptomatic w/ favorable labs - close PCP followup w/ Dr. Khan and all above BP meds except hydralazine (2) Elevated troponin: 95.4 -> 91.4, no chest pain or SOB - EKG indicating presence of LVH - consider further values if becomes symptomatic (3) Left ventricular hypertrophy by electrocardiogram: likely a result of longstanding high BP despite no prior HTN diagnoses - treat HTN (see #1) (4) Aortic root dilation: seen on echocardiogram from 03/26/24 - follow as an outpatient: close PCP followup, consider cardiology followup (5) Sinus infection: currently on day 5 of Augmentin 875 BID, does not have home meds with him - continue taking for suspected sinus infection as prescribed - WBC count normal, CBC in AM - toradol 10mg IV q6 as needed for sinus pain / headaches (6) Blood clots in urine: resolved per reported history, pt passed a few small "clots" in urine which prompted pt to come to ER - since coming to inpatient floor, pt reports no more clots and no apparent blood in urine - UA unremarkable - CBC and renal function panel in AM labs (7) Hypertension: see #1 (8) Rhinovirus infection: watch for fever, onset of symptoms (9) Enterovirus infection: watch for fever, onset of symptoms (10) Thrombocytopenia: resolved, stable Follow while on aspirin Total Time Total Time Spent Total Time Spent (In Minutes): 45 Discharge Plan Discharge Items Patient Disposition: Home - Self-Care Reason For Visit: HTN URGENCY, ELEVATED TROPONIN, ENTERO/RHINOVIRUS Discharge Diagnosis: Hypertensive Urgency, LVH Activity: Per Instructions section Activity Comment: No weightlifitng until follow up with PCP; Light aerobic exercise is OK Exercise/Sports: Gradually increase as tolerated Exercise Comment: No weightlifitng until follow up with PCP; Light aerobic exercise is OK Driving/Machine Use: No limitations Weightbearing: Full weightbearing Non-emergency contact: Primary Care Provider Call non-emergency contact if: you have any medication questions Follow-up/Referrals: Parish Khan [Primary Care Provider] - (Please have patient scheduled for hospital discharge follow up appointment within 1 week) Diet: Low Sodium (2gm) Diet Comment: Gradually decrease caffeine as we discussed Addtl Attending Provider Instructions: You were admitted to the hospital for hypertensive crisis. We were able to successfully decrease your blood pressure over the course of your admission with the use of several different anti-hypertensive medications. During your admission we also had a ultrasound of your heart (echocardiogram) which showed some thickening of your heart muscle (called left ventricular hypertrophy or LVH) which is likely due to an elevated blood pressure over a period of time. Our goals moving forward will be to optimize your heart health by decreasing your blood pressure with two different blood pressure pills as well as adding a cholesterol lowering medication (rosuvastatin). As we discussed, it will also be important that you do not weight lift until you have discussed this with your primary care provider and we have been able to get your blood pressure into the goal range. After discharge, you will need follow up with your primary doctor to monitor your blood pressure, repeat blood work (likely will need blood work next w [place]/BMP and repeat lipid panel in 6-8 weeks). A discharge summary will be sent to your primary care physician to ensure continuity of care. Follow-up: Case management will fax your discharge summary to your PCP's office with a note asking them for soon followup. Make a follow-up appointment with your PCP within the next week if possible. It is very important that you follow up with them shortly after discharge from the hospital. Medications: Your medication list has been reviewed and reconciled upon discharge to ensure accuracy and continuity of care. An updated list of all your medications is included with your hospital discharge paperwork. Please review this list closely, and make note of any changes. These medications were sent to [facility] on [address] [facility] in [place]. We sent a new medication called Lisinopril/HCTZ to your pharmacy. Take Lisinopril/HCTZ 20-25 (one tablet) daily in the morning. We sent a new medication called Amlodipine to your pharmacy. Take Amlodipine 5mg (one tablet) daily at bedtime. We sent a new medication called Clonidine to your pharmacy. Take Clonidine 0.1mg (one tablet) twice a day. We sent a new medication called Rosuvastatin to your pharmacy. Take Rosuvastatin 5mg (one tablet) daily in the morning. CALL 911 OR GO TO THE EMERGENCY DEPARTMENT if you experience any of the followi ng: Sudden, severe abdominal pain or nausea/vomiting Severe chest pain, or chest pain that radiates (moves) to your jaw or arm Sudden, severe shortness of breath or difficulty breathing Thank you for allowing us to participate in your care. Pending Studies at Discharge: Yes Studies:: Plasma metanephrines Stand-Alone Forms: My [employer], Smoking Cessation Medications and DC Order Prescriptions: New lisinopril-hydrochlorothiazide 20-25 mg Tablet 1 tab PO QAM 30 Days Qty: 30 0RF rosuvastatin [Crestor] 5 mg tablet 5 mg PO DAILY 30 Days Qty: 30 0RF amlodipine 5 mg tablet 5 mg PO HS Qty: 30 0RF clonidine HCl 0.1 mg tablet 0.1 mg PO BID 30 Days Qty: 60 0RF Discontinued Augmentin 0 tab PO UD Discharge Orders: Discharge Order (Routine); Ordered 03/28/24 Ordered By: Nav Benito/Other Patient Handouts: LVH, Hypertension Dc Admission Data Admit Date/Time: 03/26/24 01:14 Attending Provider: Makayla Cerda Admit Provider: Ramiro Contreras Primary Care Provider: Parish Khan Other Providers: Ramiro Contreras; Ced Vazquez Other Interventions: Discharge Summary Assessment (RN) Last Done: 03/28/24 16:15 Supervising Physician Co-Signing Physician Notes I personally examined the patient and verified [place] points of history and exam, discussed case, and agree with decision making and plan documented by Dr. Lopez. Patient is a 42-year-old male presenting with hypertensive crisis. Cardiology was consulted and recommended multimodal approach to reducing blood pressure. Echocardiogram showed evidence of longstanding hypertension with severe concentric LVH. Plasma metanephrines pending on discharge. Patient will follow- up with cardiology and PCP upon discharge. 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 Patient appears comfortable on exam, lungs clear b/l to auscultation, regular rate and rhythm, no acute distress. Resident Activity Tracking Resident Involvement: Resident Care Provided Care Provided: Adult Hospital Medicine
[2024-03-28 15:46] VITALS: BP 137/88; PULSE 81
--- NOTE | 2024-03-29 07:40 | Electrocardiogram Report ---
Test Reason : Blood Pressure : */* mmHG Vent. Rate : 63 BPM Atrial Rate : 63 BPM P-R Int : 178 ms QRS Dur : 110 ms QT Int : 438 ms P-R-T Axes : 21 21 265 degrees QTcB Int : 448 ms Normal sinus rhythm with sinus arrhythmia Left ventricular hypertrophy with repolarization abnormality Abnormal ECG When compared with ECG of 26-Mar-2024 05:54, (unconfirmed) QT has shortened Confirmed by Mele Patrick ([id number]) on 03/29/2024 7:40:23 AM Referred By: REFERRED SELF Confirmed By: Mele Patrick
== END 2024-03-28 16:10 | disposition home or self-care (01) | DRG 305 ==
LOC: ED 21:54 → SUATTDRO 03-26 01:14 → 2S 03-26 01:14